=== PATIENT | female | born 1990 | race Hispanic/Latino ===

== ENCOUNTER 2017-05-23 14:35 | Emergency (ER) | payer OTHER ==
[2017-05-23 14:46] VITALS: BP 118/73; PULSE 76; RESP 16; O2SAT 100
--- NOTE | 2017-05-23 15:22 | ED PDOC ---
HPI: General Adult Time Seen by Provider: 05/23/17 15:03 Chief Complaint (Nursing): Female Genitourinary History Per: Patient Additional Complaint(s): Pt. states for the past several days she's had a small pimple like mass on her R labia. She is concerned she may have a bartholin's cyst. Denies fever, trauma. Of note, pt. states 1 week ago she shaved in the pelvic region and 4 days ago when she already had the mass she shaved once again. Past Medical History Reviewed: Historical Data, Nursing Documentation, Vital Signs Vital Signs: Last Vital Signs Temp Pulse 76 05/23/17 14:43 Resp 16 05/23/17 14:43 BP 118/73 05/23/17 14:43 Pulse Ox 100 05/23/17 14:43 - Family History Family History: States: No Known Family Hx - Home Medications Home Medications: Ambulatory Orders Medication Instructions Recorded Cephalexin [cephalexin] 500 mg PO Q6 #28 cap 05/23/17 Sulfamethoxazole/Trimethoprim 2 tab PO BID #28 tab 05/23/17 [Bactrim DS 800 mg-160 mg] - Allergies Allergies/Adverse Reactions: Allergies Allergy/AdvReac Type Severity Reaction Status Date / Time No Known Allergies Allergy Verified 05/23/17 14:43 Review of Systems ROS Statement: Except As Marked, All Systems Reviewed And Found Negative Physical Exam - Physical Exam Appears: Positive for: Well, Non-toxic, No Acute Distress Skin: Positive for: Normal Color, Warm. Negative for: Rash Pelvic Exam: Positive for: Lesions (small erythematous papule with central pustule without surrounding swelling; b/l labias without swelling; no vesicles) Neurologic/Psych: Positive for: Alert, Oriented - ECG O2 Sat by Pulse Oximetry: 100 - Progress ED Course And Treament: Under sterile conditions papule was aspirated of <1cc of purulent material. 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 Pt. tolerated procedure well. Pt. states she will f/u with her OBGYN on Thursday. Told to return to ED if fever develops or swelling worsens. Disposition - Clinical Impression Clinical Impression: Folliculitis - Patient ED Disposition Is Patient to be Admitted: No - Disposition Referrals: [facility] [Outside] Disposition: Routine/Home Disposition Time: 15:25 Condition: STABLE Prescriptions: Cephalexin [cephalexin] 500 mg PO Q6 #28 cap Sulfamethoxazole/Trimethoprim [Bactrim DS 800 mg-160 mg] 2 tab PO BID #28 tab Instructions: Folliculitis (ED)
== END 2017-05-23 16:41 | disposition home or self-care (01) ==
LOC: H.ER 14:35
DX: L73.9 Follicular disorder, unspecified (principal)